=== PATIENT | male | born 1985 | race Caucasian/White ===

== ENCOUNTER → 2025-09-30 | Outpatient (CLI) | payer OTHER ==
[2025-09-30 12:45] LABS: BASO # 0.0 10^3/uL (0.0-0.2); BASO % 0.8 % (0.0-1.0); EOS # 0.0 10^3/uL (0.0-0.5); EOS % 0.6 % (0.0-3.0); LYMPH # 1.7 10^3/uL (1.5-5.0); LYMPH % 34.0 % (24.0-44.0); MONO # 0.4 10^3/uL (0.0-0.8); MONO % 7.6 % (2.0-8.0); NEUTROPHILS # 2.8 10^3/uL (1.5-8.5); NEUTROPHILS % 56.6 % (36.0-66.0); PLATELET COUNT, AUTOMATED 247 10^3/uL (150-450)
[2025-09-30 13:12] LABS: C REACTIVE PROTEIN QUANTITATIV < 0.50 MG/DL (<1.0); CPK CREATINE PHOSPHOKINASE 156 U/L (46-171)
[2025-09-30 13:13] LABS: ALT/SGPT 25 U/L (7.0-40); AST/SGOT 22 U/L (<34); CALCIUM LEVEL 8.5 MG/DL (8.5-10.1); CARBON DIOXIDE LEVEL 30 MMOL/L (20-31); CHLORIDE LEVEL 98 MMOL/L (98-107); CREATININE FOR GFR 1.02 MG/DL (0.70-1.30); GLOMERULAR FILTRATION RATE > 90.0 (>60); IRON (FE) 115 UG/DL (65-175); MAGNESIUM LEVEL 1.9 MG/DL (1.8-2.4); POTASSIUM SERUM 3.9 MMOL/L (3.5-5.1); SODIUM LEVEL 138 MMOL/L (136-145)
[2025-09-30 13:15] LABS: CK-MB VALUE MASS 1.6 NG/ML (<3.6); MB/CK RELATIVE INDEX 1.02 (< OR =4)
[2025-09-30 13:18] LABS: MONO SCRN NEGATIVE (NEGATIVE)
[2025-09-30 13:21] LABS: TOTAL 25(OH) VITAMIN D 52.8 NG/ML (20.0-100.0); VITAMIN B12 LEVEL 322 PG/ML (211-911)
== END ==
LOC: M RAD 10:37
PROVIDERS: ATTEND Physician Assistant Medical
DX: R00.2 Palpitations (principal)